=== PATIENT | female | born 1960 | race Caucasian/White ===

== ENCOUNTER 2016-11-01 06:04 | Emergency (ER) | payer BC ==
--- NOTE | 2016-11-01 06:34 | ERNOTE ---
Upper Extremity HPI - General Extremities Pain Location: arm: left - Pain down arm from shoulder Time Seen by Provider: 11/01/16 06:23 Source: patient Exam Limitations: no limitations - Immun/Allergies/Home Medications Allergies/Adverse Reactions: Allergies Allergy/AdvReac Type Severity Reaction Status Date / Time No Known Allergies Allergy Verified 11/01/16 06:08 Home Medications: HOME MEDICATIONS Fluticasone/Salmeterol [Advair 100-50 Diskus] 1 each IH DAILY 11/01/16 [Last Taken Unknown] Levothyroxine Sodium [Synthroid] 125 mcg PO DAILY 11/01/16 [Last Taken Unknown] Montelukast Sodium [Singulair] 10 mg PO DAILY 11/01/16 [Last Taken Unknown] Nabumetone 750 mg PO BID #20 tablet 11/01/16 [Last Taken Unknown] - History of Present Illness Narrative: pain began without incident or injury yesterday. worse today Occurred: yesterday Severity: moderate Method of Injury: Reports: unknown Modifying Factors - (Worsens): Reports: movement Associated Symptoms: Reports: loss of power (lt arm). Denies: tingling Other Injuries: Reports: none Review of Systems - Review of Systems Constitutional: Absent: recent illness EYE: Present: no symptoms reported ENT: Present: no symptoms reported Respiratory: Absent: shortness of breath Cardiology: Absent: chest pain Gastrointestinal/Abdominal: Absent: nausea, vomiting Genitourinary: Present: no symptoms reported Musculoskeletal: Present: muscle pain - under left breast/ ribs when she bends over. She has to really stretch the area to relieve pain. Has been happening for about 2 years. Absent: neck pain Skin: Present: no symptoms reported Neurological: Present: no symptoms reported Endocrine: Present: no symptoms reported Hematologic/Lymphatic: Present: no symptoms reported Psych: Present: no symptoms reported - Patient's Past Medical History Patient History - Medical: Hypothyroidism Patient History - Surgical Procedures: Tubal Ligation - Family History Mother Family History - Medical: , Diabetes Type 2 Family History - Cardiac/Respiratory: Myocardial Infarction Father Family History - Medical: , Diabetes Type 2 Family History - Cancer: Kidney, Metatastic - Social History Smoking Status: Current every day smoker Have you smoked in the past 12 months: Yes Do you dip or chew tobacco: No Physical Exam - Physical Exam General Appearance: Present: wd/wn, alert, no apparent distress Eye Exam: Normal inspection: bilateral Ears, Nose, Throat: Present: normal ENT inspection Neck: Present: normal inspection, nontender, supple Respiratory: Present: no respiratory distress, normal breath sounds, lungs clear Cardiovascular/Chest: Present: regular rate, rhythm, no murmur Gastrointestinal/Abdominal: Present: normal bowel sounds, nontender, nondistended, soft Back Exam: Present: normal inspection, normal range of motion, no vertebral tenderness Extremity Exam: Present: decreased range of motion - Shoulder flexion and abduction past 90 degrees Neurological Exam: Present: alert, oriented, normal mood/affect Skin Exam: Present: normal color, warm/dry Lymphatic Exam: Present: no adenopathy ED Progress - Results and Orders Patient's Lab Results:: I have reviewed the patient's lab results. Results and Orders: Laboratory Tests 11/01/16 11/01/16 11/01/16 06:30 06:30 06:30 WBC 7.2 Hgb 14.1 Hct 41.9 Plt Count 223 PT 10.6 INR (Anticoag Therapy) 1.02 PTT (Lea) 29.4 Sodium 139 Potassium 3.8 Chloride 103 Carbon Dioxide 26.5 Anion Gap 13.3 BUN 8 Creatinine 0.67 Est GFR (Non-Af Amer) 97 D Random Glucose 94 Calcium 8.8 Total Bilirubin 0.5 AST 41 ALT 33 Alkaline Phosphatase 310 H Creatine Kinase 101 CK-MB (CK-2) 0.6 Troponin I Less than 0.017 Total Protein 8.2 Albumin 3.5 - Vital Signs Patient's Vital Signs:: I have reviewed the patient's vital signs. Vital Signs: Vital Signs 11/01/16 06:08 Temperature 36.8 C Pulse Rate 92 Respiratory 16 Rate Blood Pressure 128/76 O2 Sat by Pulse 100 Oximetry - EKG EKG: NSR EKG read: Interp. by me - X-Ray X-Ray #1 X-Ray: chest Interpretation: Interp. by me X-ray Comments: No infiltrate or effusion. No cardiac or bony abnormality identified - Progress/Reassessment Chief Complaint: Upper Extremity Injury/Problem Departure Clinical Impression: Tendonitis of upper biceps tendon of left shoulder - Departure Disposition: Home Follow Up Needed Condition: Good Instructions: Bicipital Tendinitis Prescriptions: Nabumetone 750 mg PO BID #20 tablet
[2016-11-01 06:38] LABS: Hematocrit 41.9 % (37.0-47.0); Hemoglobin 14.1 gm/dL (12.5-16.0); Mean Cell Volume 87.8 fl (78-100); Mean Corpuscular Hemoglobin 29.6 pg (27-31); Mean Corpuscular Hgb Conc 33.7 g/dl (32-36); Mean Platelet Volume 8.7 fl (6.0-9.5); Neutrophil # 3.2 K/mm3 (1.3-6.0); Neutrophil % 44.7 % (42-75.0); Platelet Count 223 K/mm3 (150-450); Red Blood Count 4.77 M/mm3 (4.2-5.4); Red Cell Distribution Width 14.5 % (11.5-14.0); White Blood Count 7.2 K/mm3 (4.0-10.5)
[2016-11-01 06:50] LABS: Prothrombin Time (Patient) 10.6 Seconds (9.4-11.4)
[2016-11-01 06:52] LABS: INR 1.02 INR (0.90-1.10); Partial Thrombolplastin Time 29.4 Seconds (24-32)
[2016-11-01 06:58] LABS: Troponin I Less than 0.017 ng/ml (0.00-0.10)
[2016-11-01 07:13] LABS: ALT 33 U/L (19-67); AST 41 U/L (0-48); Albumin * 3.5 gm/dl (3.4-5.0); Alkaline Phosphatase * 310 U/L (50-170); Anion Gap 13.3 mmol/L (6.8-13.8); BUN/Creatinine Ratio 11.9 (9.0-21.6); Bilirubin, Total 0.5 mg/dL (0.0-1.1); Blood Urea Nitrogen 8 mg/dL (3-23); CK Total * 101 U/L (0-259); CKMB 0.6 ng/mL (0.0-9.0); Ca. Corrected For Albumin 8.9 mg/dL (8.4-10.2); Calcium * 8.8 mg/dL (7.9-10.9); Carbon Dioxide 26.5 mmol/L (24-32.6); Chloride 103 mmol/L (97-106); Glucose * 94 mg/dL (70-110); Potassium 3.8 mmol/L (3.4-4.6); Sodium 139 mmol/L (132-142); Total Protein 8.2 gm/dL (6.2-8.2)
[2016-11-01 07:34] VITALS: BP 125/74
== END 2016-11-01 07:30 | disposition home or self-care (01) ==
LOC: ER 06:04
DX: M75.22 Bicipital tendinitis, left shoulder (principal); F17.200 Nicotine dependence, unspecified, uncomplicated